=== PATIENT | male | born 2005 | race Caucasian/White ===

== ENCOUNTER 2025-02-04 18:48 | Emergency (ER) | payer SELFPAY ==
[2025-02-04] MEDS ORDERED: Sodium Chloride 0.9% 10 ML Syringe FLUSH PRN (19:08)
[2025-02-04] MEDS: Iopamidol 612 MG/ML 100 ML Bottle IVPUSH ONE (19:11)
[2025-02-04] MEDS: Ketorolac 30 MG/ML SDV IVPUSH ONE (19:29)
[2025-02-04 19:30] LABS: BASOPHILS PERCENT AUTO 0.3 % (0.0-1.0); EOSINOPHILS PERCENT AUTO 1.1 % (1.0-3.0); LYMPHOCYTES PERCENT AUTO 9.5 % (20.5-50.1); MONOCYTES PERCENT AUTO 15.5 % (2-8); NEUTROPHILS PERCENT AUTO 73.6 % (42.2-75.2); PLATELET COUNT,PLT 323 10^3/uL (150-450); RED BLOOD CELL COUNT 5.08 10^6/uL (4.6-6.2); WHITE BLOOD CELL COUNT,WBC 15.1 10^3/uL (5.0-10.0)
[2025-02-04 19:51] LABS: A/G RATIO 0.9; ALANINE AMINOTRANSFERASE,ALT 34.0 U/L (16-63); ASPARTATE AMNIOTRANSFERASE,AST 13.0 U/L (15-37); BILIRUBIN TOTAL 0.9 mg/dL (0.2-1.0); BLOOD UREA NITROGEN,BUN 10.0 mg/dL (7-18); CARBON DIOXIDE,CO2 25.0 mmol/L (21-32); CHLORIDE,CL 98.0 mmol/L (98-107); CREATININE 1.06 mg/dL (0.70-1.30); EST CRCL DRUG DOSING (CG) 113.82 mL/min; ESTIMATED GFR 102.0 mL/min (>=60); GLUCOSE RANDOM 96.0 mg/dL (70-99); POTASSIUM,K 4.1 mmol/L (3.5-5.1); PROTEIN TOTAL,TP 8.0 g/dL (6.4-8.2); SODIUM,NA 135.0 mmol/L (136-145)
[2025-02-04 19:54] LABS: LACTIC ACID 0.9 mmol/L (0.4-2.0)
[2025-02-04] MEDS: Dexamethasone 4 MG/ML SDV IVPUSH ONE (22:03)
[2025-02-04 22:18] VITALS: BP 122/80; PULSE 90
== END 2025-02-04 22:00 | disposition home or self-care (01) ==
LOC: DL.ED 18:48
DX: H66.012 Acute suppurative otitis media with spontaneous rupture of ear drum, left ear (principal)
CPT/HCPCS: 36415; 70481; 80053; 83605; 83735; 85025; 86140; 87040; 87070; 87077; 87205; 96374; 96375; 99282; 99284-25; A9270-GY; J0696; J1100; J1885; J7030; Q9967